=== PATIENT | male | born 1970 | race Caucasian/White ===

== ENCOUNTER 2016-08-25 17:38 | Emergency (ER) | payer SELFPAY ==
[2016-08-25] MEDS ORDERED: Lorazepam 2 MG/ML VIAL ONE (18:33)
[2016-08-25 18:53] LABS: #Basophils 0.1 thou/uL (0.0-0.2); #Eosinphils 0.1 thou/uL (0.0-0.7); #Lymphocytes 2.6 thou/uL (1.20-3.40); #Monocytes 0.8 thou/uL (0.11-0.59); #Neutrophils 3.9 thou/uL (1.40-6.50); %Basophils 1.8 % (0.0-1.0); %Eosinophils 1.9 % (0.0-10.0); %Lymphocytes 34.7 % (21.0-51.0); %Monocytes 10.5 % (0.0-10.0); Hemoglobin 15.5 g/dL (14.0-18.0); Mean Corpuscular Hemoglobin 32.6 pg (27.0-31.0); Mean Corpuscular Volume 93.3 fl (80.0-94.0); Mean Platelet Volume 7.4 fL (7.4-10.4); Platelet Count 269 thou/uL (130-400); RBC Distribution Width 11.8 % (11.5-14.5); Red Blood Cell (RBC) Count 4.74 mill/uL (4.70-6.10); White Blood Cell (WBC) Count 7.5 thou/uL (4.8-10.8)
[2016-08-25 18:54] LABS: Bilirubin Negative (Negative); Blood, Urine Negative (Negative); Clarity Clear (Clear); Glucose, Urine (Dipstick) Negative (Negative); Leukocyte Negative (Negative); Nitrite Negative (Negative); Protein, Urine (Dipstick) 30 mg/dL (Neg-Trace); Specific Gravity, Urine 1.015 (1.005-1.030); Urobilinogen 0.2 mg/dL (0.2-1.0)
[2016-08-25 18:55] LABS: pH, Urine 8.5 (5.0-9.0)
[2016-08-25 18:56] LABS: Bacteria/HPF None Seen HPF (None Seen); RBC/HPF 0-3 HPF (0-3); Squamous Epithelial 0-3 HPF (0-3); WBC/HPF 0-3 HPF (0-3)
[2016-08-25 19:04] LABS: Amphetamine Not Detected (NotDetected); Barbiturates Screen Not Detected (NotDetected); Benzodiazepine Screen Not Detected (NotDetected); Cocaine Metabolite Screen Detected (NotDetected); Medtox Control Line Valid? VALID (VALID); Methadone Not Detected (NotDetected); Methamphetamine Detected (NotDetected); Opiate Screen Not Detected (NotDetected); Oxycodone Screen Not Detected (NotDetected); Phencyclidine (PCP) Not Detected (NotDetected); THC/Cannabinoid Screen Not Detected (NotDetected); Tricyclic Screen Not Detected (NotDetected)
[2016-08-25 19:10] LABS: CKMB 2.4 ng/mL (0-6.6); Troponin I Less than 0.010 ng/mL (< 0.028)
[2016-08-25 19:13] LABS: ALT (SGPT) 27 U/L (0-55); AST (SGOT) 39 U/L (5-34); Albumin 4.2 g/dL (3.5-5.0); Alcohol Less than 10 mg/dL (Less than 10); Alkaline Phosphatase 79 U/L (40-150); Anion Gap 23 mmol/L (10-20); BUN (Urea Nitrogen) 12 mg/dL (8.9-20.6); Bilirubin, Total 0.7 mg/dL (0.2-1.2); Calc. Creatinine Clearance 0 mL/min (70-130); Calcium 9.4 mg/dL (7.8-10.44); Carbon Dioxide 20 mmol/L (22-29); Chloride 100 mmol/L (98-107); Estimated GFR-MDRD 72; Globulin 3.4 g/dL (2.4-3.5); Glucose 108 mg/dL (70-105); Potassium 4.5 mmol/L (3.5-5.1); Protein, Total 7.6 g/dL (6.0-8.3); Sodium 138 mmol/L (136-145)
--- NOTE | 2016-08-25 20:14 | ERRECORD ---
[facility] EMERGENCY RECORD HPI ANXIETY (18:36 DHAM) CHIEF COMPLAINT: Patient presents for evaluation of anxiety. HISTORIAN: History provided by patient, History provided by patient's caregiver, Fritz from [facility], Pt was acting "just fine while we were checking him into [facility]" but then started shaking and acting scared and nervous. Reports that his last ETOH was this morning and last methamphetamine was "this morning." He has been through detox for alcohol "maybe 10 or more times." Denies ever having a seizure though he has "gotten the shakes sometimes." He is feeling "a lot better now than I was earlier" (prior to any meds for anxiety). LOCATION: Unable to localize symptoms. QUALITY: Patient is alert and oriented to person, place and time, Santiago coma score is 15, Described as similar to previous episodes, has history of panic attacks and "I was on medicine for them in the past.". SEVERITY: Currently symptoms are mild. TIME COURSE: Sudden onset of symptoms, 2, hours prior to arrival, Symptoms are improving. ASSOCIATED WITH: No associated depression, No associated hallucinations, No associated loss of appetite, No associated stridor, No associated syncope, Associated with substance abuse, alcohol, methamphetamine. EXACERBATED BY: Patient's condition exacerbated by nothing. RELIEVED BY: Patient's condition relieved by time. ROS (18:43 DHAM) CONSTITUTIONAL: Historian denies chills, denies fever, denies lethargy, denies weakness. EYES: Historian denies eye pain, denies vision changes. ENT: Historian denies hearing changes, denies rhinorrhea, denies sore throat. CARDIOVASCULAR: Historian denies chest pain, denies diaphoresis, denies exercise intolerance, denies syncope. RESPIRATORY: Historian denies cough, denies shortness of breath, denies sputum, denies wheezing. GI: Historian denies abdominal pain, denies appetite changes, denies diarrhea, denies stool changes, denies vomiting. GENITOURINARY MALE: Historian denies dysuria, denies incontinence, denies urinary frequency, denies urinary urgency. MUSCULOSKELETAL: Historian denies arthralgias, denies back pain, denies myalgias, denies neck pain. SKIN: Historian denies rash, denies skin lesions. NEUROLOGIC: Historian denies dizziness, denies focal weakness, denies headache, denies mental status changes, denies paresthesias. ENDOCRINE: Historian denies polydipsia, denies polyuria. HEMO/LYMPHATIC: Historian denies easy bruising. PSYCHIATRIC: Historian reports alcohol abuse, reports anxiety, denies depression, reports drug abuse, reports methamphetamine abuse, reports IV drug abuse, reports emotional lability, denies &a-1R&a+25V*p+0X*[id number]*c202B*c15G*c2P*p-0X&a-25V&a+1R Name: Giovanny Bansal : 1970 M46 MedRec: [id number] AcctNum: [id number] Prepared: ThuAug 26, 2016 01:14 by Interface Page 1 of 4 pMD [facility] EMERGENCY RECORD suicidal ideation. NOTES: All systems reviewed, negative except as described above. PAST MEDICAL HISTORY MEDICAL HISTORY: Past medical history includes history of hyperlipidemia, high cholesterol. (17:47 SFRE) Past medical history includes gastrointestinal disease, Hepatitis C, Past medical history includes history of hyperlipidemia, high cholesterol. (18:46 DHAM) MALE SURGICAL HISTORY: Patient has no surgical history. (17:47 SFRE) PSYCHIATRIC HISTORY: Psychiatric history includes. (17:47 SFRE) SOCIAL HISTORY: Patient drinks every day, more than 10 drinks per day, Patient currently uses drugs, abuses methamphetamines, Patient has no smoking history. (17:47 SFRE) NOTES: HAVE EXAMINED AND AGREE WITH PMHX, SOCIAL HX AND PAST FAMILY HX as noted in nursing docuentation. (18:21 DHAM) KNOWN ALLERGIES No recorded allergies CURRENT MEDICATIONS No recorded medications VITAL SIGNS VITAL SIGNS: BP: 96/85, Pulse: 80, Resp: 22, Temp: 97.6 (Tympanic), O2 sat: 96 on Room Air, Time: 08/25/2016 17:45. (17:45 SFRE) BP: 157/87, Pulse: 79, Resp: 18, Temp: 97.6 (Tympanic), O2 sat: 98 on Room Air, Time: 08/25/2016 18:38. (18:38 SFRE) BP: 157/82, Pulse: 100, Resp: 20, O2 sat: 98 on Room Air, Time: 08/25/2016 19:20. (19:20 JDEA) PHYSICAL EXAM (18:44 [facility]) CONSTITUTIONAL: Vital signs reviewed, Patient afebrile, Pulse normal, Blood pressure normal, Respiratory rate normal. HEAD: Head exam included findings of head atraumatic, normocephalic. EYES: Eye exam included findings of eyelids normal to inspection, Pupils equally round and reactive to light, Extraocular muscles intact, Conjunctiva normal. ENT: ENT exam normal, Ear exam normal, external ear normal, tympanic membranes normal, Nose exam normal, no bleeding from nares, Pharynx exam normal, Uvula exam normal, Tonsil exam normal, not enlarged, no exudates, Mouth exam normal, mucous membranes moist. NECK: Neck exam included findings of normal range of motion, Trachea midline, no carotid bruits, no jugular venous distention, no cervical adenopathy. &a-1R&a+25V*p+0X*q7510Q*c202B*c15G*c2P*p-0X&a-25V&a+1R Name: Giovanny Bansal : 1970 M46 MedRec: [id number] AcctNum: [id number] Prepared: ThuAug 26, 2016 01:14 by Interface Page 2 of 4 pMD [facility] EMERGENC[facility] RECORD RESPIRATORY CHEST: Respiratory exam included findings of no respiratory distress, Breath sounds clear, No wheezing, No rales, Breath sounds not diminished. CARDIOVASCULAR: Cardiovascular exam included findings of heart rate regular rate and rhythm, Heart sounds normal, Point of maximal impulse normal, Pedal pulses normal. ABDOMEN MALE: Abdominal exam included findings of abdomen nontender, Bowel sounds normal, Liver normal, Spleen normal, no distension, no peritoneal signs. BACK: Back exam normal. UPPER EXTREMITY: Upper extremity exam included findings of inspection abnormal, multiple recent needle musa bilat forearms. no signs of acute infection., Range of motion normal, Motor strength normal, Sensation intact, Radial pulse normal, no edema. LOWER EXTREMITY: Lower extremity exam normal. NEURO: Neuro exam findings include patient oriented to person, place and time, Speech normal, Memory normal, Cranial nerves intact, Deep tendon reflexes normal, no focal motor deficits, no focal sensory deficits. SKIN: Skin exam included findings of skin warm, dry, no rash. LYMPHATIC: Lymphatic exam normal. PSYCHIATRIC: Psychiatric exam included findings of patient oriented to person place and time, Affect, anxious, Judgment normal, Insight normal, Remote memory normal, Recent memory normal, Concentration normal, No suicidal ideations, No homicidal ideations. MEDICATION ADMINISTRATION SUMMARY Drug Name: LORazepam injection, Dose Ordered: 1 mg, Route: IV Push, Status: Given, Time: 18:39 08/25/2016, Detailed record available in Medication Service section. DOCTOR NOTES TEXT: I see no signs of acute alcohol withdrawal and as he is improved without tx, I suspect that he had a panic attack. I will check some labs, tx with benzo and monitor for awhile. (18:47 DHAM) Pt is doing well and feels comfortable going to the [facility]. I have discussed signs of alcohol withdrawal with the pt and Fritz from [facility]. They are comfortable that this was likely a panic attack or symptoms from his earlier stimulant use. see dci. (19:29 DHAM) PROBLEM LIST No recorded problems DIAGNOSIS (19:33 DHAM) FINAL: PRIMARY: Anxiety. &a-1R&a+25V*p+0X*[id number]*c202B*c15G*c2P*p-0X&a-25V&a+1R Name: Giovanny Bansal : 1970 6 MedRec: [id number] AcctNum: [id number] Prepared: ThuAug 26, 2016 01:14 by Interface Page 3 of 4 pMD [facility] EMERGENC[facility] RECORD PRESCRIPTION No recorded prescriptions DISPOSITION PATIENT: Disposition Type: Discharge, Disposition: *Discharge Home. (19:33 DHAM) Patient left the department. (19:43 JDEA) Melchor: FATEMEH=MD Isaias, Josue HASSAN=Iker, RN, Malina ELLIOTT=GLADYS Hanson, Fabiola &a-1R&a+25V*p+0X*j6700V*c202B*c15G*c2P*p-0X&a-25V&a+1R Name: Giovanny Bansal : 1970 6 MedRec: [id number] AcctNum: [id number] Prepared: ThuAug 26, 2016 01:14 by Interface Page 4 of 4 [facility]MD [facility]
--- NOTE | 2016-08-25 20:20 | PICIS ---
[facility] EMERGENCY RECORD TRIAGE (17:46 SFRE) PATIENT: NAME: Giovanny Bansal, AGE: 46, GENDER: male, : Sun 1970, TIME OF GREET: Mon Aug 25, 2016 17:39, ECODE BILLING MAP: [facility], Zip Code: [address], KG WEIGHT: [phone], PHONE: , , , PERSON ID: [id number], PCP: NO PCP. (17:46 SFRE) TRIAGE NOTES: STATES ETOH WITHDRAWAL, LAST DRINK (3) BEERS THIS AM. (17:46 SFRE) COMPLAINT: WITHDRAWAL ALCOHOL. (17:46 SFRE) ADMISSION: URGENCY: 3 Urgent, ADMISSION SOURCE: Home, TRANSPORT: Walk-in, BED: ED -05. (17:46 SFRE) PROVIDERS: TRIAGE NURSE: Fabiola Hanson RN. (17:46 SFRE) VITAL SIGNS: BP 96/85, Pulse 80, Resp 22, Temp 97.6, (Tympanic), O2 Sat 96, on Room Air, Time 08/25/2016 17:45. (17:45 SFRE) KNOWN ALLERGIES No recorded allergies CURRENT MEDICATIONS No recorded medications VITAL SIGNS VITAL SIGNS: BP: 96/85, Pulse: 80, Resp: 22, Temp: 97.6 (Tympanic), O2 sat: 96 on Room Air, Time: 08/25/2016 17:45. (17:45 SFRE) BP: 157/87, Pulse: 79, Resp: 18, Temp: 97.6 (Tympanic), O2 sat: 98 on Room Air, Time: 08/25/2016 18:38. (18:38 SFRE) BP: 157/82, Pulse: 100, Resp: 20, O2 sat: 98 on Room Air, Time: 08/25/2016 19:20. (19:20 JDEA) NURSING ASSESSMENT: FOCUSED (18:23 SFRE) CONSTITUTIONAL: Patient arrives ambulatory, Gait steady, History obtained from patient, Patient appears, anxious, Patient cooperative, Patient alert, Oriented to person, place and time, Skin warm, Skin dry, Skin normal in color, Mucous membranes pink, Mucous membranes moist, Patient is well-groomed, Patient complains of ETOH WITHDRAWAL. PAIN: Patient rates pain as 0 out of 10. EYES: Focused eye assessment finding include pupils equally round and reactive to light, Left pupil 3 mm in size, Right pupil 3 mm in size. NEURO: Focused neuro assessment findings include patient alert, cooperative, No facial droop noted, Speech coherent, no weakness, no numbness, No loss of consciousness. GCS: Eye opening: (4) - Spontaneous, Verbal: (5) - Oriented/conversive, Motor: (6) - Obeys commands/Spontaneous, GCS Total: 15. RESPIRATORY: Focused respiratory assessment findings include breath sounds clear. ABDOMEN: Focused abdominal assessment findings include abdomen &a-1R&a+25V*p+0X*t7966A*c202B*c15G*c2P*p-0X&a-25V&a+1R Name: Giovanny Bansal : 1970 M46 MedRec: [id number] AcctNum: [id number] Prepared: Lev Aug 26, 2016 01:14 by Interface Page 1 of 10 pMD [facility] EMERGENCY RECORD soft, tender, no constipation, no diarrhea, no complaint of nausea, no vomiting, Bowel sounds present. GENITOURINARY: Focused genitourinary assessment not applicable. MUSCULOSKELETAL: Focused musculoskeletal assessment findings include normal range of motion. SAFETY: Side rails up, Cart/Stretcher in lowest position, Call light within reach, Hospital ID band on, Friend(s) at bedside. NURSING PROCEDURE: SHAKER OPERATOR (18:25 SFRE) SHAKER OPERATOR: Cardiac monitoring indicated for ANXIETY/ETOH WITHDRAWAL, Patient placed on advertising internship, Heart rate: 80, showing normal sinus rhythm, without ectopy, Patient placed on non-invasive blood pressure monitor, Patient placed on continuous pulse oximetry, Adult/pediatric oxisensor applied, Oxygen saturation 100%. NURSING PROCEDURE: DISCHARGE NOTE (19:44 JDEA) DISCHARGE: Patient discharged to home, ambulating without assistance, family driving, accompanied by other family member, Summary of Care printed/ provided, Patient requested and was provided an electronic copy of Discharge Instructions, Transition record given to patient, Discharge instructions given to patient, Simple or moderate discharge teaching performed, Above person(s) verbalized understanding of discharge instructions and follow-up care, Patient treated and evaluated by physician. BELONGINGS: Belongings and valuables with patient at time of discharge include:, Belongings remain with patient. NURSING PROCEDURE: IV IV SITE 1: IV therapy indicated for hydration, IV therapy indicated for medication administration, IV established, to the left hand, using a 20 gauge catheter, in one attempt, Saline lock established, Flushed with normal saline (mls): 5CC, Labs drawn at time of placement, labeled in the presence of the patient and sent to lab. (18:24 SFRE) FOLLOW-UP SITE 1: After procedure, no drainage at IV site, After procedure, no swelling at IV site, After procedure, no redness at IV site. (18:26 SFRE) ORDER DETAILS Order Name: Alcohol, Status: Active, Time: 18:38 08/25/2016, User: FATEMEH, - Ordered for: MD Esparza Darren, - Entered by: MD Esparza Darren - Mon Aug 25, 2016 18:38, - Quantity: 1, Order Name: SHAKER OPERATOR ED, Status: Done, Time: 18:38 08/25/2016, User: LEXI, - Ordered for: MD Esparza Darren, - Entered by: MD Esparza Darren - Vanda Aug 25, 2016 18:35, &a-1R&a+25V*p+0X*e4954N*c202B*c15G*c2P*p-0X&a-25V&a+1R Name: Giovanny Bansal : 1970 M46 MedRec: [id number] AcctNum: [id number] Prepared: Lev Aug 26, 2016 01:14 by Interface Page 2 of 10 D [facility] EMERGENCY RECORD - Quantity: 1, Order Name: Cardiac Profile w/CKMB & Troponin - I, Status: Active, Time: 18:35 08/25/2016, User: FATEMEH, - Ordered for: MD Esparza Darren, - Entered by: MD Esparza Darren - Mon Aug 25, 2016 18:35, - Quantity: 1, Order Name: CBC with Differential, Status: Active, Time: 18:35 08/25/2016, User: FATEMEH, - Ordered for: MD Esparza Darren, - Entered by: MD Espraza Darren - Mon Aug 25, 2016 18:35, - Quantity: 1, Order Name: Comprehensive Metabolic Panel, Status: Active, Time: 18:35 08/25/2016, User: FATEMEH, - Ordered for: MD Esparza Darren, - Entered by: MD Esparza Darren - [facility] Aug 25, 2016 18:35, - Quantity: 1, Order Name: Drug Screen, Urine, Status: Active, Time: 18:35 08/25/2016, User: FATEMEH, - Ordered for: MD Esparza Darren, - Entered by: MD Esparza Darren [facility] Aug 25, 2016 18:35, - Quantity: 1, Order Name: ERRT Pulse Oximeter ER, Status: Active, Time: 18:35 08/25/2016, User: FATEMEH, - Ordered for: MD Esparza Darren, - Entered by: MD Esparza Darren [facility] Aug 25, 2016 18:35, - Quantity: 1, Order Name: SALINE LOCK, Status: Done, Time: 18:38 08/25/2016, User: LEXI, - Ordered for: MD Esparza Darren, - Entered by: MD Esparza Darren [facility] Aug 25, 2016 18:35, - Quantity: 1, Order Name: Urinalysis w/ Rflx Microscopic, Status: Active, Time: 18:35 08/25/2016, User: FATEMEH, - Ordered for: MD Esparza Darren, - Entered by: MD Esparza Darren [facility] Aug 25, 2016 18:35, - Quantity: 1. MEDICATION ADMINISTRATION SUMMARY Drug Name: LORazepam injection, Dose Ordered: 1 mg, Route: IV Push, Status: Given, Time: 18:39 08/25/2016, Detailed record available in Medication Service section. MEDICATION SERVICE (18:39 [facility]) LORazepam injection: Order: LORazepam injection (lorazepam) - Dose: 1 mg : IV Push Schedule: Now Ordered by: Josue Esparza MD Entered by: Josue Esparza MD ThuAug 25, 2016 18:33 Documented as given by: Fabiola Hanson RN ThuAug 25, 2016 18:39 &a-1R&a+25V*p+0X*j0433X*c202B*c15G*c2P*p-0X&a-25V&a+1R Name: Giovanny Bansal : 1970 M46 MedRec: [id number] AcctNum: [id number] Prepared: Lev Aug 26, 2016 01:14 by Interface Page 3 of 10 pMD [facility] EMERGENCY RECORD Patient, Medication, Dose, Route and Time verified prior to administration. Amount given: 1MG, IV SITE #1 IVP, initial medication, Slowly, Awake and alert- acceptable, Catheter placement confirmed via flush prior to administration, IV site without signs or symptoms of infiltration during medication administration, No swelling during administration, No drainage during administration, IV flushed after administration, Correct patient, time, route, dose and medication confirmed prior to administration, Patient advised of actions and side-effects prior to administration, Allergies confirmed and medications reviewed prior to administration, Patient in position of comfort, Side rails up, Cart in lowest position, Family at bedside. HPI ANXIETY (18:36 DHAM) CHIEF COMPLAINT: Patient presents for evaluation of anxiety. HISTORIAN: History provided by patient, History provided by patient's caregiver, Fritz from [facility], Pt was acting "just fine while we were checking him into [facility]" but then started shaking and acting scared and nervous. Reports that his last ETOH was this morning and last methamphetamine was "this morning." He has been through detox for alcohol "maybe 10 or more times." Denies ever having a seizure though he has "gotten the shakes sometimes." He is feeling "a lot better now than I was earlier" (prior to any meds for anxiety). LOCATION: Unable to localize symptoms. QUALITY: Patient is alert and oriented to person, place and time, Santiago coma score is 15, Described as similar to previous episodes, has history of panic attacks and "I was on medicine for them in the past.". SEVERITY: Currently symptoms are mild. TIME COURSE: Sudden onset of symptoms, 2, hours prior to arrival, Symptoms are improving. ASSOCIATED WITH: No associated depression, No associated hallucinations, No associated loss of appetite, No associated stridor, No associated syncope, Associated with substance abuse, alcohol, methamphetamine. EXACERBATED BY: Patient's condition exacerbated by nothing. RELIEVED BY: Patient's condition relieved by time. ROS (18:43 DHAM) CONSTITUTIONAL: Historian denies chills, denies fever, denies lethargy, denies weakness. EYES: Historian denies eye pain, denies vision changes. ENT: Historian denies hearing changes, denies rhinorrhea, denies sore throat. CARDIOVASCULAR: Historian denies chest pain, denies diaphoresis, denies exercise intolerance, denies syncope. RESPIRATORY: Historian denies cough, denies shortness of breath, denies sputum, denies wheezing. GI: Historian denies abdominal pain, denies appetite changes, denies diarrhea, denies stool changes, denies vomiting. &a-1R&a+25V*p+0X*h8704E*c202B*c15G*c2P*p-0X&a-25V&a+1R Name: Giovanny Bansal : 1970 M46 MedRec: [id number] AcctNum: [id number] Prepared: ThuAug 26, 2016 01:14 by Interface Page 4 of 10 pMD [facility] EMERGENCY RECORD GENITOURINARY MALE: Historian denies dysuria, denies incontinence, denies urinary frequency, denies urinary urgency. MUSCULOSKELETAL: Historian denies arthralgias, denies back pain, denies myalgias, denies neck pain. SKIN: Historian denies rash, denies skin lesions. NEUROLOGIC: Historian denies dizziness, denies focal weakness, denies headache, denies mental status changes, denies paresthesias. ENDOCRINE: Historian denies polydipsia, denies polyuria. HEMO/LYMPHATIC: Historian denies easy bruising. PSYCHIATRIC: Historian reports alcohol abuse, reports anxiety, denies depression, reports drug abuse, reports methamphetamine abuse, reports IV drug abuse, reports emotional lability, denies suicidal ideation. NOTES: All systems reviewed, negative except as described above. PAST MEDICAL HISTORY MEDICAL HISTORY: Past medical history includes history of hyperlipidemia, high cholesterol. (17:47 SFRE) Past medical history includes gastrointestinal disease, Hepatitis C, Past medical history includes history of hyperlipidemia, high cholesterol. (18:46 DHAM) MALE SURGICAL HISTORY: Patient has no surgical history. (17:47 SFRE) PSYCHIATRIC HISTORY: Psychiatric history includes. (17:47 SFRE) SOCIAL HISTORY: Patient drinks every day, more than 10 drinks per day, Patient currently uses drugs, abuses methamphetamines, Patient has no smoking history. (17:47 SFRE) NOTES: HAVE EXAMINED AND AGREE WITH PMHX, SOCIAL HX AND PAST FAMILY HX as noted in nursing docuentation. (18:21 DHAM) PHYSICAL EXAM (18:44 DHAM) CONSTITUTIONAL: Vital signs reviewed, Patient afebrile, Pulse normal, Blood pressure normal, Respiratory rate normal. HEAD: Head exam included findings of head atraumatic, normocephalic. EYES: Eye exam included findings of eyelids normal to inspection, Pupils equally round and reactive to light, Extraocular muscles intact, Conjunctiva normal. ENT: ENT exam normal, Ear exam normal, external ear normal, tympanic membranes normal, Nose exam normal, no bleeding from nares, Pharynx exam normal, Uvula exam normal, Tonsil exam normal, not enlarged, no exudates, Mouth exam normal, mucous membranes moist. NECK: Neck exam included findings of normal range of motion, Trachea midline, no carotid bruits, no jugular venous distention, no cervical adenopathy. RESPIRATORY CHEST: Respiratory exam included findings of no respiratory distress, Breath sounds clear, No wheezing, No rales, &a-1R&a+25V*p+0X*i2789W*c202B*c15G*c2P*p-0X&a-25V&a+1R Name: Giovanny Bansal : 1970 M46 MedRec: [id number] AcctNum: [id number] Prepared: ThuAug 26, 2016 01:14 by Interface Page 5 of 10 pMD [facility] EMERGENCY RECORD Breath sounds not diminished. CARDIOVASCULAR: Cardiovascular exam included findings of heart rate regular rate and rhythm, Heart sounds normal, Point of maximal impulse normal, Pedal pulses normal. ABDOMEN MALE: Abdominal exam included findings of abdomen nontender, Bowel sounds normal, Liver normal, Spleen normal, no distension, no peritoneal signs. BACK: Back exam normal. UPPER EXTREMITY: Upper extremity exam included findings of inspection abnormal, multiple recent needle musa bilat forearms. no signs of acute infection., Range of motion normal, Motor strength normal, Sensation intact, Radial pulse normal, no edema. LOWER EXTREMITY: Lower extremity exam normal. NEURO: Neuro exam findings include patient oriented to person, place and time, Speech normal, Memory normal, Cranial nerves intact, Deep tendon reflexes normal, no focal motor deficits, no focal sensory deficits. SKIN: Skin exam included findings of skin warm, dry, no rash. LYMPHATIC: Lymphatic exam normal. PSYCHIATRIC: Psychiatric exam included findings of patient oriented to person place and time, Affect, anxious, Judgment normal, Insight normal, Remote memory normal, Recent memory normal, Concentration normal, No suicidal ideations, No homicidal ideations. EVENTS TRANSFER: Triage to Emergency Main ED -05. (ThuAug 25, 2016 17:46 SFRE) Emergency Main ED -05 to -02. (17:57 MDEB) Removed from Emergency Main ED -02. (19:43 JDEA) O2SAT INTERPRETATION (18:46 DHAM) O2SAT: Single pulse oximetry, Oxygen saturation 98%, on room air, Oxygen saturation interpretation: Normal, No intervention required. DOCTOR NOTES TEXT: I see no signs of acute alcohol withdrawal and as he is improved without tx, I suspect that he had a panic attack. I will check some labs, tx with benzo and monitor for awhile. (18:47 DHAM) Pt is doing well and feels comfortable going to the [facility]. I have discussed signs of alcohol withdrawal with the pt and Fritz from [facility]. They are comfortable that this was likely a panic attack or symptoms from his earlier stimulant use. see dci. (19:29 DHAM) PROBLEM LIST No recorded problems &a-1R&a+25V*p+0X*y3320B*c202B*c15G*c2P*p-0X&a-25V&a+1R Name: Giovanny Bansal : 1970 M46 MedRec: [id number] AcctNum: [id number] Prepared: ThuAug 26, 2016 01:14 by Interface Page 6 of 10 pMD [facility] EMERGENCY RECORD DIAGNOSIS (19:33 DHAM) FINAL: PRIMARY: Anxiety. DISPOSITION PATIENT: Disposition Type: Discharge, Disposition: *Discharge Home. (19:33 DHAM) Patient left the department. (19:43 JDEA) INSTRUCTION (19:34 DHAM) DISCHARGE: ANXIETY REACTION. SPECIAL: Return for signs of agitation or severe anxiety or any other concerns as we discussed. Consider visiting with [facility] to restart regular anxiety meds. PRESCRIPTION No recorded prescriptions IMAGING (19:44 JDEA) *DISCHARGE INSTRUCTIONS RECEIPT: Image captured from scanner. *SUPPLY CHARGE SHEET: Image captured from scanner. ADMIN (ThuAug 26, 2016 01:09 [facility]) DIGITAL SIGNATURE: MD Esparza Darren. RESULTS LABORATORY: CBC with Differential Collection DT: ThuAug 25, 2016 18:48, White Blood Cell (WBC) Count 7.5 thou/uL, Range (4.8-10.8), Red Blood Cell (RBC) Count 4.74 mill/uL, Range (4.70-6.10), Hemoglobin 15.5 g/dL, Range (14.0-18.0), Hematocrit 44.2 %, Range (42.0-52.0), Mean Corpuscular Volume 93.3 fl, Range (80.0-94.0), *Mean Corpuscular Hemoglobin 32.6 - H pg, Range (27.0-31.0), Mean Corpuscular HGB CONC 35.0 g/dL, Range (32.0-36.0), RBC Distribution Width 11.8 %, Range (11.5-14.5), Platelet Count 269 thou/uL, Range (130-400), Mean Platelet Volume 7.4 fL, Range (7.4-10.4), %Neutrophils 51.0 %, Range (42.0-75.0), %Lymphocytes 34.7 %, Range (21.0-51.0), *%Monocytes 10.5 - H %, Range (0.0-10.0), %Eosinophils 1.9 %, Range (0.0-10.0), *%Basophils 1.8 - H %, Range (0.0-1.0), #Neutrophils 3.9 thou/uL, Range (1.40-6.50), #Lymphocytes 2.6 thou/uL, Range (1.20-3.40), *#Monocytes 0.8 - H thou/uL, Range (0.11-0.59), #Eosinphils 0.1 thou/uL, Range (0.0-0.7), #Basophils 0.1 thou/uL, Range (0.0-0.2). (18:58 [facility]) Urinalysis w/ Rflx Microscopic Collection DT: ThuAug 25, 2016 18:48, Color Yellow , Range (Yellow), Clarity Clear , Range (Clear), &a-1R&a+25V*p+0X*u5874U*c202B*c15G*c2P*p-0X&a-25V&a+1R Name: Giovanny Bansal : 1970 M46 MedRec: [id number] AcctNum: [id number] Prepared: ThuAug 26, 2016 01:14 by Interface Page 7 of 10 pMD [facility] EMERGENCY RECORD Specific [place], Urine 1.015 , Range (1.005-1.030), pH, Urine 8.5 , Range (5.0-9.0), , Leukocyte Negative , Range (Negative), Nitrite Negative , Range (Negative), *Protein, Urine (Dipstick) 30 - H mg/dL, Range (Neg-Trace), Glucose, Urine (Dipstick) Negative mg/dL, Range (Negative), *Ketone, Urine 15 - H mg/dL, Range (Negative), Urobilinogen 0.2 mg/dL, Range (0.2-1.0), Bilirubin Negative , Range (Negative), Blood, Urine Negative , Range (Negative). (18:58 [facility]) Alcohol Collection DT: ThuAug 25, 2016 18:48, Alcohol Less than 10 mg/dL, Range (Less than 10), The pharmacological response to blood alcohol levels may vary from, individual to individual. Negative: Less than 10, mg/dL Toxic: 50 - 100 mg/dL , Depression of ADJUNCT PHLEBOTOMY INSTRUCTOR: Greater than 100 mg/dL , Fatalities reported: Greater than 400 mg/dL . (19:29 [facility]) Comprehensive Metabolic Panel Collection DT: ThuAug 25, 2016 18:48, Sodium 138 mmol/L, Range (136-145), Potassium 4.5 mmol/L, Range (3.5-5.1), Chloride 100 mmol/L, Range (98-107), *Carbon Dioxide 20 - L mmol/L, Range (22-29), *Anion Gap 23 - H mmol/L, Range (10-20), BUN (Urea Nitrogen) 12 mg/dL, Range (8.9-20.6), Creatinine 1.10 mg/dL, Range (0.7-1.3), Estimated GFR-MDRD 72 , Reference Range for Estimated GFR: Greater than 90, mL/min/1.73 m2 NOTE: The MDRD equation has not been validated for use, with the elderly (over 70 years of age), women, patients with, serious comorbid condition or persons with extremes of body size, muscle, mass, or nutritional status. , *Glucose 108 - H mg/dL, Range (70-105), Calcium 9.4 mg/dL, Range (7.8-10.44), Bilirubin, Total 0.7 mg/dL, Range (0.2-1.2), Protein, Total 7.6 g/dL, Range (6.0-8.3), NOTE: Plasma values are generally 0.3 to 0.5 g/dL higher than serum values, due to the presence of fibrinogen. , Albumin 4.2 g/dL, Range (3.5-5.0), Globulin 3.4 g/dL, Range (2.4-3.5), Alb/Glob Ratio 1.2 g/dL, Range (1.2-2.2), &a-1R&a+25V*p+0X*a3482R*c202B*c15G*c2P*p-0X&a-25V&a+1R Name: Giovanny Bansal : 1970 M46 MedRec: [id number] AcctNum: [id number] Prepared: ThuAug 26, 2016 01:14 by Interface Page 8 of 10 pMD [facility] EMERGENCY RECORD Alkaline Phosphatase 79 U/L, Range (40-150), *AST (SGOT) 39 - H U/L, Range (5-34), ALT (SGPT) 27 U/L, Range (0-55). (19:29 [facility]) Cardiac Profile w/CKMB & TropI Collection DT: ThuAug 25, 2016 18:48, CKMB 2.4 ng/mL, Range (0-6.6), Troponin I Less than 0.010 ng/mL, Range (< 0.028), Reference Range , 0.00 - 0.028 ng/mL Negative 0.029 - 0.29 ng/mL , Indeterminate Greater or Equal to 0.3 ng/mL Strongly suggests NE , . (19:29 [facility]) Drug Screen, Urine Collection DT: ThuAug 25, 2016 18:48, THC/Cannabinoid Screen Not Detected , Range (NotDetected), Phencyclidine (PCP) Not Detected , Range (NotDetected), *Cocaine Metabolite Screen Detected - H , Range (NotDetected), *Methamphetamine Detected - H , Range (NotDetected), Opiate Screen Not Detected , Range (NotDetected), Amphetamine Not Detected , Range (NotDetected), Benzodiazepine Screen Not Detected , Range (NotDetected), Tricyclic Screen Not Detected , Range (NotDetected), Methadone Not Detected , Range (NotDetected), Barbiturates Screen Not Detected , Range (NotDetected), Oxycodone Screen Not Detected , Range (NotDetected), Propoxyphene Screen Not Detected , Range (NotDetected), Drug Screen Cutoff , Range (), The [employer] Profile-V Panel for Qualitative Drugs of Abuse assays are for, presumptive screening testing only. The drug class and detection limits, are as follows: Drug Class Detection Limit Amphetamine , 500 ng/mL* Barbiturates 200 ng/mL , Benzodiazepines 150 ng/mL* Cocaine 150 ng/mL*, Methamphetamine 500 ng/mL* Methadone 200, ng/mL* Opiates 100 ng/mL* Oxycodone , 100 ng/mL PCP 25 ng/mL Propoxyphene , 300 ng/mL Tricyclic Antidepressants 300 ng/mL Cannabinoids (THC) , 50 ng/mL Tests which yield a presumptive positive result must be , tested using a more specific alternate chemical method in order to obtain, a confirmed analytical result. Additional confirmation and identification, may be ordered on a routine basis, if desired. Presumptive positive urines, are held for &a-1R&a+25V*p+0X*g2706O*c202B*c15G*c2P*p-0X&a-25V&a+1R Name: Giovanny Bansal : 1970 M46 MedRec: [id number] AcctNum: [id number] Prepared: ThuAug 26, 2016 01:14 by Interface Page 9 of 10 pMD [facility] EMERGENCY RECORD two weeks. . (19:29 [facility]) Urine Microscopic Collection DT: ThuAug 25, 2016 18:48, RBC/HPF 0-3 HPF, Range (0-3), WBC/HPF 0-3 HPF, Range (0-3), Squamous Epithelial 0-3 HPF, Range (0-3), Bacteria/HPF None Seen HPF, Range (None Seen). (19:29 DHAM) Urinalysis w/ Rflx Microscopic Collection DT: ThuAug 25, 2016 18:48, Color Yellow , Range (Yellow), Clarity Clear , Range (Clear), Specific [place], Urine 1.015 , Range (1.005-1.030), pH, Urine 8.5 , Range (5.0-9.0), , Leukocyte Negative , Range (Negative), Nitrite Negative , Range (Negative), *Protein, Urine (Dipstick) 30 - H mg/dL, Range (Neg-Trace), Glucose, Urine (Dipstick) Negative mg/dL, Range (Negative), *Ketone, Urine 15 - H mg/dL, Range (Negative), Urobilinogen 0.2 mg/dL, Range (0.2-1.0), Bilirubin Negative , Range (Negative), Blood, Urine Negative , Range (Negative). (19:29 [facility]) Melchor: FATEMEH=MD Isaias, Josue HASSAN=GLADYS Dong, Malina TREVINO=GLADYS Wisdom, Sara ELLIOTT=GLADYS Hanson, Fabiola &a-1R&a+25V*p+0X*a8991O*c202B*c15G*c2P*p-0X&a-25V&a+1R Name: Giovanny Bansal : 1970 6 MedRec: [id number] AcctNum: [id number] Prepared: Lev Aug 26, 2016 01:14 by Interface Page 10 of 10 pMVik CAL[place]LL
== END 2016-08-25 19:44 | disposition home or self-care (01) ==
LOC: MADERS 17:38
DX: F41.9 Anxiety disorder, unspecified (principal); E78.5 Hyperlipidemia, unspecified; E78.00 Pure hypercholesterolemia, unspecified
CPT/HCPCS: 36415; 80053; 80306; 80307; 81003; 81015; 82553; 84484; 85025; 94760; 96374; J2060